=== PATIENT | female | born 1965 | race Caucasian/White ===

== ENCOUNTER 2016-10-10 08:19 | Day surgery (SDC) | payer OTHER ==
[~2016-10-10] VITALS: Ht 154.9 cm; Wt 65.0 kg
[~2016-10-10 08:19] MED LIST: 0.9% Sodium Chloride 1,000 ML IV PRN; IBUP800T28 PO; LOM PO; OMEP20TA24 PO; Sodium Chloride LOK Flush 10 mL Syringe IV PRN; fentaNYL-PF 50 mCg/mL 2 mL Inj IVPUSH PRN
[2016-10-10 08:54] VITALS: BP 124/80; PULSE 52; RESP 12; O2SAT 98
--- NOTE | 2016-10-10 09:40 | PCM.ENDCOL ---
Colonoscopy Date of Service: Oct 10, 2016 Physician Benson Fletcher MD Pre Procedure Diagnosis: screening diarrhea Post Procedure Dx & Findings: Polyp hemorrhoids diverticuli Procedure Colonoscopy Prep adequate Withdrawal time 23 minutes After unremarkable rectal examination the Olympus video colonoscope was inserted patient's anal canal and was advanced to cecum. Landmarks were identified including the ileocecal valve and appendiceal orifice. Scope was withdrawn systematically. Visualized colonic mucosa showed healthy shiny mucosa with normal healthy-appearing vasculature. We advanced to the terminal ileum which showed normal villous structures without ulcer or mass erosion. We advanced about 10 cm. The colon, there was a 1 mm polyp which was removed completely using cold forceps. In the sigmoid colon there was a 3 mm polyp which was removed completely using cold snare. Patient had multiple diverticuli mostly in the sigmoid colon however there were several clusters all the way up to the ascending colon. In the rectum retroflexion was done which showed hemorrhoids. Anal canal was inspected carefully on the way out and hemorrhoids noted. Due to the diarrhea, we took random biopsies from cecum to the rectum. Despite lactose-free diet, patient has diarrhea. Impression Polyp 2 status post complete removal Diverticula Hemorrhoids Diarrhea status post random biopsies TI Normal Recommendation Repeat colonoscopy 5 years Diverticular diet Presedation Assessment Risks and Benefits Informed consent was obtained from the patient after all risks and benefits including but not limited to drug reaction, infection, pain, bleeding, perforation, as well as alternatives were discussed. Patient monitoring Continuous pulse oximetry, cardiac monitoring, blood pressure monitoring, IV access, and oxygen at 2L per nasal cannula. Periprocedural Fentanyl: Fentanyl 100mcg Incrementally Midazolam: Midazolam 5mg Incrementally Complications There were no periprocedural complications identified. Post Procedure Plan Post Procedure Recommendations 1. Restrict activities today. 2. Resume normal activities in the morning. 3. Resume medications. 4. Patient informed of normal post procedure side effects as bloating, drowsiness, blood streaking in the stool. 5. average risk CRCS. If colon polyps come back as: -Hyperplastic- can repeat colonoscopy in 10 years -Tubular adenoma- repeat colonoscopy in 5 years -Tubulovillous/villous adenoma- repeat colonoscopy in 3 years -If any dysplasia- return to clinic as soon as possible 6. Please don't hesitate to call me with any questions. Benson Fletcher MD Oct 10, 2016 09:40
[2016-10-10 09:41] VITALS: BP 107/75; PULSE 58; RESP 14; O2SAT 96
[2016-10-10 09:51] VITALS: BP 110/72; PULSE 54; RESP 14; O2SAT 95
[2016-10-10 10:02] VITALS: BP 113/81; PULSE 59; RESP 17; O2SAT 96
--- NOTE | 2016-10-11 13:07 | PATH ---
SURGICAL PATHOLOGY Attending Physician:Benson Fletcher M.D. CASE STATUS: Signed Out PATIENT NAME: MARTIN IYER PID: [id number] : 1965 DATE COLLECTED:10/10/2016 20:41 SPECIMEN: 1: Colon, Biopsy 2: Colon, Biopsy 3: Rectum, Biopsy CLINICAL HISTORY: DIARRHEA 1). RANDOM COLON BIOPSY 2). SIGMOID COLON POLYPS X2 3). RECTAL POLYP FINAL DIAGNOSIS: 1.COLON, RANDOM BIOPSIES: NORMAL COLONIC MUCOSA. No significant inflammation identified. No evidence of dysplasia or malignancy. 2.SIGMOID COLON POLYPS: TUBULAR ADENOMA. HYPERPLASTIC POLYP. 3.RECTAL POLYP: HYPERPLASTIC POLYP. ICD10 CODE D12.6 GROSS DESCRIPTION: The specimen is received in three formalin filled containers labeled with the patient's name. 1). The specimen is sublabeled "random colon" and consists of multiple portions of tissue which aggregate to 0.6 x 0.6 x 0.2 CM. The specimen is entirely submitted in cassettes 1A. 2). The specimen is sublabeled "sigmoid colon polyp" and consists of 2 portions of tissue which aggregate to 0.6 x 0.6 x 0.4 CM. The specimen is entirely submitted in cassette 2A. 3). The specimen is sublabeled "rectal polyp" and consists of a 0.3 x 0.3 x 0.2 CM portion of tissue which is entirely submitted in cassette 3A. 10/10/2016 [facility] MICRO DESCRIPTION: See diagnosis. ICD-9 CODES: CPT CODES: 1: 59882 2: 96666 3: 86881 Electronically Signed Out Mason Thakur MD [facility] [address], [place] [address] Technical component performed at [facility], [facility] [address], [place], [address]
== END 2016-10-10 23:59 | disposition home or self-care (01) ==
LOC: END 08:19
PROVIDERS: ATTEND Internal Medicine
DX: Z12.11 Encounter for screening for malignant neoplasm of colon (principal); D12.5 Benign neoplasm of sigmoid colon; K62.1 Rectal polyp; K58.0 Irritable bowel syndrome with diarrhea
CPT/HCPCS: 45380; 45385; 88305; 99153; G0500; J2250; J3010; J7030